=== PATIENT | male | born 1960 | race American Indian/Alaskan Native ===

== ENCOUNTER 2019-09-30 15:31 | Emergency (ER) | payer MEDICARE, MEDICAID ==
--- NOTE | 2019-09-30 16:38 | Event Note ---
Date: 09/30/19 58-year-old gentleman brought to the hospital by emergency medical services with a complaint of hypertension. Currently standing, and in no acute distress, does not endorse any pain. Apparently complained of dizziness to the nurse. Exam appears to be nonfocal. Screening orders initiated. Vital Signs 09/30/19 15:45 Temperature 99 F Pulse Rate 81 Respiratory 12 Rate Blood Pressure 193/105 [Left] O2 Sat by Pulse 97 Oximetry
[2019-09-30 17:42] LABS: Hematocrit 41.3 % (35.5-45.6); Hemoglobin 13.7 gm/dl (11.8-15.2); Mean Corpuscular HGB Conc 33 % (32-34); Mean Corpuscular Volume 79 fl (84-94); Platelet Count 262 K/mm3 (140-440); Red Cell Distribution Width 14.9 % (13.2-15.2)
--- NOTE | 2019-09-30 17:44 | Cat Scan Report ---
CT HEAD WITHOUT CONTRAST INDICATION / CLINICAL INFORMATION: Hypertension. Dizziness. TECHNIQUE: All CT scans at this location are performed using CT dose reduction for ALARA by means of automated e xposure control. COMPARISON: CT dated 10/28/16 FINDINGS: HEMORRHAGE: None. EXTRA-AXIAL SPACES: Normal in size and morphology for the patient's age. VENTRICULAR SYSTEM: Mild ex vacuo dilatation of the right lateral ventricle is unchanged. CEREBRAL PARENCHYMA: Old right MCA distribution infarct and encephalomalacia is unchanged. No acute t erritorial infarct. MIDLINE SHIFT OR HERNIATION: None. CEREBELLUM / BRAINSTEM: No significant abnormality. ORBITS: Normal as visualized. SOFT TISSUES of HEAD: No significant abnormality. CALVARIUM: No significant abnormality. PARANASAL SINUSES / MASTOID AIR CELLS: Normal as visualized. ADDITIONAL FINDINGS: None. IMPRESSION: 1. No acute intracranial abnormality. . Old, right MCA distribution infarct, unchanged. Signer Name: Mati Hrenandez MD Signed: 09/30/2019 5:40 PM Workstation Name: [id number]
[2019-09-30 18:05] LABS: INR 0.95 (0.87-1.13)
--- NOTE | 2019-09-30 19:45 | Event Note ---
Date of service: 09/30/19 Face to Face: Primary care DrBarry: Dr. Hassan This is a 58-year-old gentleman, history of stroke, hypertension, residual left- sided weakness, presenting to the ER with a primary complaint of painless hypertension and hyperglycemia. The patient makes no complaint of dizzy, headache to this provider. When I evaluate the patient, he is standing up comfortably, eating food, and in no acute distress. He walks with a steady gait, there is no past-pointing with a right upper extremity. There is no facial droop, he has chronic left-sided weakness, and indicates that he cannot do [id number] secondary to chronic disability in his left lower extremity. He states that he came here because his primary care doctor sent him here for hypertension and hyperglycemia. His hypertension is improved at this time, he has no need for antihypertensive medication refill at this time. Blood pressure is improved the time of discharge, EKG unchanged from prior, CT scan with no acute findings, the patient appears quite comfortable. He does not appear to have an emergent medical condition at this time, and he can follow-up with an outpatient primary care doctor for his chronic hyperglycemia, and chronic hypertension. please reference the [facility] clinical policy for asymptomatic hypertension Vital Signs 09/30/19 09/30/19 09/30/19 15:45 15:50 16:00 Temperature 99 F Pulse Rate 81 85 80 Respiratory 12 14 16 Rate Blood Pressure 193/105 Blood Pressure 193/105 [Left] O2 Sat by Pulse 97 97 98 Oximetry 09/30/19 09/30/19 09/30/19 16:15 16:30 16:46 Temperature Pulse Rate 80 81 82 Respiratory 19 19 14 Rate Blood Pressure 191/107 191/107 185/110 Blood Pressure [Left] O2 Sat by Pulse 96 98 95 Oximetry 09/30/19 09/30/19 09/30/19 17:20 17:30 17:45 Temperature Pulse Rate 89 78 79 Respiratory 15 14 21 Rate Blood Pressure 88/49 88/49 193/99 Blood Pressure [Left] O2 Sat by Pulse 99 98 96 Oximetry 09/30/19 09/30/19 09/30/19 18:00 18:16 18:30 Temperature Pulse Rate 79 81 Respiratory 16 15 Rate Blood Pressure 188/119 188/119 Blood Pressure [Left] O2 Sat by Pulse 97 97 98 Oximetry 09/30/19 09/30/19 18:45 19:01 Temperature Pulse Rate 80 78 Respiratory 20 14 Rate Blood Pressure 192/105 175/115 Blood Pressure [Left] O2 Sat by Pulse 97 96 Oximetry Lab Results 09/30/19 09/30/19 09/30/19 Range/Units 16:16 17:20 17:20 WBC 9.7 (4.5-11.0) K/mm3 RBC 5.20 H (3.65-5.03) M/mm3 Hgb 13.7 (11.8-15.2) gm/dl Hct 41.3 (35.5-45.6) % MCV 79 L (84-94) fl MCH 26 L (28-32) pg MCHC 33 (32-34) % RDW 14.9 (13.2-15.2) % Plt Count 262 (140-440) K/mm3 PT 12.6 (12.2-14.9) Sec. INR 0.95 (0.87-1.13) Sodium (137-145) mmol/L Potassium (3.6-5.0) mmol/L Chloride (98-107) mmol/L Carbon Dioxide (22-30) mmol/L Anion Gap mmol/L BUN (9-20) mg/dL Creatinine (0.8-1.5) mg/dL Estimated GFR ml/min BUN/Creatinine Ratio % Glucose (75-100) mg/dL POC Glucose 248 H (70-105) Calcium (8.4-10.2) mg/dL Magnesium (1.7-2.3) mg/dL Total Creatine Kinase (55-170) units/L 09/30/19 09/30/19 Range/Units 17:20 17:20 WBC (4.5-11.0) K/mm3 RBC (3.65-5.03) M/mm3 Hgb (11.8-15.2) gm/dl Hct (35.5-45.6) % MCV (84-94) fl MCH (28-32) pg MCHC (32-34) % RDW (13.2-15.2) % Plt Count (140-440) K/mm3 PT (12.2-14.9) Sec. INR (0.87-1.13) Sodium 140 (137-145) mmol/L Potassium 3.5 L (3.6-5.0) mmol/L Chloride 102.5 (98-107) mmol/L Carbon Dioxide 23 (22-30) mmol/L Anion Gap 18 mmol/L BUN 11 (9-20) mg/dL Creatinine 1.1 (0.8-1.5) mg/dL Estimated GFR > 60 ml/min BUN/Creatinine Ratio 10 % Glucose 224 H (75-100) mg/dL POC Glucose (70-105) Calcium 9.2 (8.4-10.2) mg/dL Magnesium 1.80 (1.7-2.3) mg/dL Total Creatine Kinase 197 H (55-170) units/L
[2019-09-30 19:50] LABS: BUN/Creatinine Ratio 10; Blood Urea Nitrogen 11 mg/dL (9-20); Calcium 9.2 mg/dL (8.4-10.2); Hemolysis Index 10
--- NOTE | 2019-09-30 20:11 | Emergency Department Report ---
ED General Adult HPI - General Chief complaint: High BP Stated complaint: HYPERTENSION/HBS Time Seen by Provider: 09/30/19 19:04 Source: patient, EMS Mode of arrival: Stretcher Limitations: No Limitations - History of Present Illness Severity scale (0 -10): 9 - Related Data Home Medications Medication Instructions Recorded Confirmed Last Taken AtorvaSTATin [Lipitor] 80 mg PO DAILY 10/28/16 10/28/16 Unknown Cyclobenzaprine [Flexeril 10 MG 10 mg PO TID 10/28/16 10/28/16 Unknown TAB] Insulin Glargine,Hum.rec.anlog 10 units SQ QHS 10/28/16 10/28/16 Unknown [Lantus Solostar] Metoprolol Tartrate [Lopressor] 50 mg PO BID 10/28/16 10/28/16 Unknown amLODIPine [Norvasc] 10 mg PO DAILY 10/28/16 10/28/16 Unknown hydrALAZINE [Apresoline] 50 mg PO TID 10/28/16 10/28/16 Unknown oxyCODONE /ACETAMINOPHEN [Percocet 1 tab PO Q6HR PRN 10/28/16 10/28/16 Unknown 5/325] Allergies Allergy/AdvReac Type Severity Reaction Status Date / Time No Known Allergies Allergy Unverified 05/20/16 17:25 ED Review of Systems ROS: Stated complaint: HYPERTENSION/HBS Other details as noted in HPI ED Past Medical Hx - Past Medical History Previous Medical History?: Yes Hx Hypertension: Yes Hx CVA: Yes (x 2) Hx Congestive Heart Failure: Yes Hx Diabetes: Yes - Surgical History Past Surgical History?: No - Social History Smoking Status: Never Smoker Substance Use Type: Alcohol - Medications Home Medications: Home Medications Medication Instructions Recorded Confirmed Last Taken Type AtorvaSTATin [Lipitor] 80 mg PO DAILY 10/28/16 10/28/16 Unknown History Cyclobenzaprine [Flexeril 10 MG 10 mg PO TID 10/28/16 10/28/16 Unknown History TAB] Insulin Glargine,Hum.rec.anlog 10 units SQ QHS 10/28/16 10/28/16 Unknown History [Lantus Solostar] Metoprolol Tartrate [Lopressor] 50 mg PO BID 10/28/16 10/28/16 Unknown History amLODIPine [Norvasc] 10 mg PO DAILY 10/28/16 10/28/16 Unknown History hydrALAZINE [Apresoline] 50 mg PO TID 10/28/16 10/28/16 Unknown History oxyCODONE /ACETAMINOPHEN [Percocet 1 tab PO Q6HR PRN 10/28/16 10/28/16 Unknown History 5/325] ED Physical Exam - General Limitations: No Limitations General appearance: alert, in no apparent distress, other (patient standing in the room eating on stand with no complication.) - Head Head exam: Present: atraumatic, normocephalic - Eye Eye exam: Present: normal appearance, PERRL, EOMI. Absent: nystagmus Pupils: Present: unequal - ENT ENT exam: Present: mucous membranes moist - Neck Neck exam: Present: normal inspection - Respiratory Respiratory exam: Present: normal lung sounds bilaterally. Absent: respiratory distress, wheezes, rales, chest wall tenderness, accessory muscle use - Cardiovascular Cardiovascular Exam: Present: regular rate, normal rhythm. Absent: systolic murmur, diastolic murmur, rubs, gallop - GI/Abdominal GI/Abdominal exam: Present: soft, normal bowel sounds, other (protuberant abdomen) - Rectal Rectal exam: Present: deferred - Extremities Exam Extremities exam: Present: normal inspection. Absent: tenderness, normal capillary refill, pedal edema - Back Exam Back exam: Present: normal inspection - Neurological Exam Neurological exam: Present: alert, oriented X3, CN II-XII intact, normal gait, reflexes normal, other (normal speech no ataxia). Absent: motor sensory deficit - Psychiatric Psychiatric exam: Present: normal affect, normal mood. Absent: anxious, flat affect, manic - Skin Skin exam: Present: warm, dry, intact, normal color. Absent: rash ED Course Vital Signs 09/30/19 09/30/19 09/30/19 15:45 15:50 16:00 Temperature 99 F Pulse Rate 81 85 80 Respiratory 12 14 16 Rate Blood Pressure 193/105 Blood Pressure 193/105 [Left] O2 Sat by Pulse 97 97 98 Oximetry 09/30/19 09/30/19 09/30/19 16:15 16:30 16:46 Temperature Pulse Rate 80 81 82 Respiratory 19 19 14 Rate Blood Pressure 191/107 191/107 185/110 Blood Pressure [Left] O2 Sat by Pulse 96 98 95 Oximetry 10/09/30/19 09/30/19 17:20 17:30 17:45 Temperature Pulse Rate 89 78 79 Respiratory 15 14 21 Rate Blood Pressure 88/49 88/49 193/99 Blood Pressure [Left] O2 Sat by Pulse 99 98 96 Oximetry 09/30/19 09/30/19 09/30/19 18:00 18:16 18:30 Temperature Pulse Rate 79 81 Respiratory 16 15 Rate Blood Pressure 188/119 188/119 Blood Pressure [Left] O2 Sat by Pulse 97 97 98 Oximetry 09/30/19 09/30/19 18:45 19:01 Temperature Pulse Rate 80 78 Respiratory 20 14 Rate Blood Pressure 192/105 175/115 Blood Pressure [Left] O2 Sat by Pulse 97 96 Oximetry - Consultations Consultation #1: 09/30/19 20:[address] Alejandre whom also had face to face. See his note for more detail. ED Medical Decision Making - Lab Data Result diagrams: 09/30/19 17:20 09/30/19 17:20 - Radiology Data Radiology results: [place] [address] Cat Scan Report Signed Patient: SAMINA AYERS MR#: [id number] : 1960 Acct:[id number] Age/Sex: 58 / M ADM Date: 09/30/19 Loc: ED Attending Dr: Ordering Physician: JOSÉ ALEJANDRE MD Date of Service: 09/30/19 Procedure(s): CT head/brain wo con Accession Number(s): [id number] cc: JOSÉ ALEJANDRE MD CT HEAD WITHOUT CONTRAST INDICATION / CLINICAL INFORMATION: Hypertension. Dizziness. TECHNIQUE: All CT scans at this location are performed using CT dose reduction for ALARA by means of automated exposure control. COMPARISON: CT dated 10/28/16 FINDINGS: HEMORRHAGE: None. EXTRA-AXIAL SPACES: Normal in size and morphology for the patient's age. VENTRICULAR SYSTEM: Mild ex vacuo dilatation of the right lateral ventricle is unchanged. CEREBRAL PARENCHYMA: Old right MCA distribution infarct and encephalomalacia is unchanged. No acute territorial infarct. MIDLINE SHIFT OR HERNIATION: None. CEREBELLUM / BRAINSTEM: No significant abnormality. ORBITS: Normal as visualized. SOFT TISSUES of HEAD: No significant abnormality. CALVARIUM: No significant abnormality. PARANASAL SINUSES / MASTOID AIR CELLS: Normal as visualized. ADDITIONAL FINDINGS: None. IMPRESSION: 1. No acute intracranial abnormality. . Old, right MCA distribution infarct, unchanged. Signer Name: Mati Hernandez MD Signed: 09/30/2019 5:40 PM Workstation Name: [id number] Transcribed By: DT Dictated By: Bereket Hernandez MD Electronically Authenticated By: Bereket Hernandez MD Signed Date/Time: 09/30/19 0530 - Medical Decision Making A 58-year-old Polish male with past medical history of known hypertension and diabetes presents emergency department for recommendation of his PCP for evaluation of her of his hypertension and blood sugar. Was found to have a blood pressure of an unknown number while while while in the office associated with a headache and some vague recurrence of of dizziness. Since here in the emergency department his headache and his dizziness along with his blood pressure has has improved he is on a host of medications to treat this issue and currently reports no chest pain, low joint swelling, shortness of breath and has a normal neurological examination is alert and oriented times 3. He would eat and stand on his own power with no limitation. He has a history of a CVA but reports no new weaknesses or deficits since that time. Critical care attestation.: If time is entered above; I have spent that time in minutes in the direct care of this critically ill patient, excluding procedure time. ED Disposition Clinical Impression: Cephalgia, HTN (hypertension) Disposition: DC-01 TO HOME OR SELFCARE Is pt being admited?: No Does the pt Need Aspirin: No Condition: Stable Instructions: Hypertension (ED), Acute Headache (ED) Referrals: [facility] [Provider Group] - 3-5 Days
[2019-09-30] MEDS ORDERED: ACETAMINOPHEN 325 MG TAB PO STA (20:15)
--- NOTE | 2019-09-30 20:19 | Emergency Department Report ---
Blank Doc - Documentation Documentation: EKG obtained and 725 shows sinus rhythm at 79 bpm. Nonspecific T-wave changes to the inferior leads and heavy unaffected V3 through V6 EKG was also reviewed by Dr. Wheeler no STEMI present
[2019-09-30 21:45] VITALS: BP 169/93
== END 2019-09-30 21:05 | disposition home or self-care (01) ==
LOC: ED 15:31
DX: I11.0 Hypertensive heart disease with heart failure (principal); I50.9 Heart failure, unspecified; E11.65 Type 2 diabetes mellitus with hyperglycemia; M54.2 Cervicalgia; R42 Dizziness and giddiness
CPT/HCPCS: 36415; 70450; 80048; 82550; 82962; 83735; 85027; 85610; 93005; 93010